=== PATIENT | female | born 1995 | race African-American/Black ===

== ENCOUNTER 2016-07-21 08:27 | Emergency (ER) | payer MEDICAID ==
[~2016-07-21] VITALS: Ht 193 cm; Wt 80.0 kg
[2016-07-21 08:28] VITALS: BP 106/60; PULSE 60; RESP 14; TEMP 97.6; O2SAT 98
[2016-07-21 08:54] VITALS: BP 121/60; PULSE 73; RESP 18; O2SAT 97
[2016-07-21 09:34] LABS: BACTERIA, URINE OCC /hpf; BLOOD, URINE NEG (NEG); COMMENT (UR) CULT NOT INDICATED; CULTURE IF INDICATED CULT NOT INDICATED; GLUCOSE,URINE NEG (NEG); KETONE, URINE NEG (NEG); MUCUS URINE MOD /lpf (OCC); NITRITE,URINE NEG (NEG); PH, URINE 5.5 (5.0-8.5); SQUAMOUS EPITHELIAL CELL URINE 6 /hpf (0-5); URINE COLOR YELLOW (YELLW/STRAW)
--- NOTE | 2016-07-21 10:28 | PD ---
HPI Chief Complaint: Abdominal Pain Time Seen by Provider: 08:52 Travel History International Travel<30 days: No Contact w/Intl Traveler<30days: No Traveled to known affect area: No History of Present Illness HPI 21-year-old female came to the emergency room with history of vaginal irritation and suprapubic pain for past 2 days. No history of dysuria or hematuria. Patient says that she has scratched herself down there because of the irritation once. She also shaved herself with a razor blade. She wanted to come in and be checked out to see what could be going on. She noticed some red rash down there. No history of vaginal discharge. Patient is sexually active but uses protection. Her last period was 2 weeks ago. Vital signs were stable. No history of STDs in the past. The pain is in the suprapubic area radiating downwards to the pelvic area. She has been applying some ointment which is coconut oil base [id number]-[id number] and says that has been soothing. [facility] Past Medical History Narrative Medical List of her past medical, social and family history reviewed from the nursing note. Influenza Vaccination: Yes ?: Not LMP: 2 weeks ago : 1 Para: 1 Social History Alcohol Use: Yes (on occasion) Tobacco Use: No Substance Use: Yes (thc on occasion ) Allergies-Medications (Allergen,Severity, Reaction): Coded Allergies: Cultivated Oat Pollen (Verified Allergy, Unknown, 07/21/16) Comments List of allergies reviewed from the nursing note. Narrative Medication Patient is not on any medications. Review of Systems Except as stated in HPI: all other systems reviewed are Neg Physical Exam Narrative GENERAL: Awake, alert, no obvious distress SKIN: Warm and dry. HEAD: Atraumatic. Normocephalic. EYES: Pupils equal and round. No scleral icterus. No injection or drainage. ENT: No nasal bleeding or discharge. Mucous membranes pink and moist. NECK: Trachea midline. No JVD. CARDIOVASCULAR: Regular rate and rhythm. No murmur appreciated. RESPIRATORY: No accessory muscle use. Clear to auscultation. Breath sounds equal bilaterally. GASTROINTESTINAL: Abdomen soft, non-tender, nondistended. Hepatic and splenic margins not palpable. : External inspection shows shaved pubic area, slight redness in the perineum. No obvious discharge. Speculum exam shows some whitish discharge which has no particular malodor. No CMT or adnexal tenderness. MUSCULOSKELETAL: No obvious deformities. No clubbing. No cyanosis. No edema. NEUROLOGICAL: Awake and alert. No obvious cranial nerve deficits. Motor grossly within normal limits. Normal speech. PSYCHIATRIC: Appropriate mood and affect; insight and judgment normal. Data Data Last Documented VS Vital Signs Date Time Temp Pulse Resp B/P Pulse Ox O2 Delivery O2 Flow Rate FiO2 07/21/16 10:38 98.2 79 18 119/64 98 07/21/16 08:54 Room Air Orders Gc And Chlamydia Pcr (07/21/16 08:59) Wet Prep Profile (07/21/16 08:59) Urinalysis - C+S If Indicated (07/21/16 08:59) Ed Urine Pregnancytest Poc (07/21/16 08:59) Labs Laboratory Tests Test 07/21/16 07/21/16 09:13 09:25 Urine Color YELLOW Urine Turbidity HAZY Urine pH 5.5 Urine Specific [place] 1.030 Urine Protein TRACE mg/dL Urine Glucose (UA) NEG mg/dL Urine Ketones NEG mg/dL Urine Occult Blood NEG Urine Nitrite NEG Urine Bilirubin NEG Urine Urobilinogen LESS THAN 2.0 MG/DL Urine Leukocyte Esterase MOD Urine WBC 2 /hpf Urine Squamous Epithelial 6 /hpf Cells Urine Bacteria OCC /hpf Urine Mucus MOD /lpf Microscopic Urinalysis Comment CULT NOT INDICATED Clue Cells (Wet Prep) NONE SEEN Vaginal Trichomonas (Wet Prep) NONE SEEN Vaginal Yeast (Wet Prep) NONE SEEN Chlamydia trachomatis DNA NOT DETECTED (PCR) Neisseria gonorrhoeae DNA NOT DETECTED (PCR) MDM Medical Decision Making Medical Screen Exam Complete: Yes Emergency Medical Condition: Yes Differential Diagnosis Vaginitis, contact dermatitis, local irritation, STD Narrative Course 10:26 AM UA seem to be within normal limits. Wet prep was negative. I will discharge her home at this point. I have encouraged her to continue using the nqfx-fsv-gytuelv ointment she has been using as well as witch sheree pads. Procedures EKG Prior to Arrival: No Diagnosis Primary Impression: Vaginitis Qualified Code: N76.0 - Acute vaginitis Additional Impression: Dermatitis Referrals: Primary Care Physician 3 days Additional Instructions: Please continue using the emollient cream that you have been using to soothe the skin. You can also get umrk-jpz-lowpkck witch sheree pads which will minimize the irritation. Do not shave until symptoms improve. Drink lots of fluid. Follow-up with primary care or return to ER if condition worsens. We' ll call you with the culture report if it is positive for GC or chlamydia. Med/Other Pt SpecificInfo: No Change to Meds Disposition: 01 DISCHARGE HOME Condition: Stable Andrea Kc MD Jul 21, 2016 10:28
[2016-07-21 10:38] VITALS: BP 119/64; TEMP 98.2
[2016-07-21 12:07] LABS: CHLAMYDIA PCR NOT DETECTED (NOT DETECT); NEISSERIA PCR NOT DETECTED (NOT DETECT)
== END 2016-07-21 11:00 | disposition home or self-care (01) ==
LOC: NEPE 08:27
DX: N76.0 Acute vaginitis (principal); L30.9 Dermatitis, unspecified; R21 Rash and other nonspecific skin eruption
CPT/HCPCS: 81001; 84703; 87210; 87491; 87591; 99284

== ENCOUNTER 2016-08-21 18:25 | Emergency (ER) | payer MEDICAID ==
[~2016-08-21] VITALS: Ht 193 cm; Wt 80.0 kg
[2016-08-21 18:28] VITALS: BP 96/60; PULSE 91; RESP 18; TEMP 98.2; O2SAT 99
== END 2016-08-21 21:48 | disposition left against medical advice (07) ==
LOC: NED 18:25
DX: K08.9 Disorder of teeth and supporting structures, unspecified (principal)
CPT/HCPCS: 99281

== ENCOUNTER 2016-09-07 20:44 | Emergency (ER) | payer MEDICAID ==
[~2016-09-07] VITALS: Ht 193 cm; Wt 83.0 kg
[2016-09-07 20:51] VITALS: BP 115/69; PULSE 76; RESP 14; TEMP 98.5; O2SAT 98
--- NOTE | 2016-09-07 20:58 | PD ---
Physical Exam Date Seen by Provider: Sep 07, 2016 Time Seen by Provider: 20:57 Narrative 21 year old female presents to the emergency department for evaluation of dental pain. She states all of her back teeth hurt. 8/10 pain. Pain has been ongoing for 1 week. Patient awaiting bed placement. Data Data Last Documented VS Vital Signs Date Time Temp Pulse Resp B/P Pulse Ox O2 Delivery O2 Flow Rate FiO2 09/07/16 20:51 98.5 76 14 115/69 98 Room Air [facility] Supervised Visit with KENN: Blank Diaz Sep 07, 2016 20:58
[2016-09-07] MEDS ORDERED: MAGICADU2 SWISH-SPIT (21:56)
[2016-09-07] MEDS ORDERED: IBUP800T23 PO (21:56)
[2016-09-07] MEDS ORDERED: PENI500T PO (21:56)
--- NOTE | 2016-09-07 21:59 | PD ---
HPI Chief Complaint: Oral / Dental Pain or Problem Time Seen by Provider: 21:50 Travel History International Travel<30 days: No Contact w/Intl Traveler<30days: No Traveled to known affect area: No History of Present Illness HPI 21-year-old female presents for evaluation of dental pain. Symptom onset 1 week ago. Pain is a throbbing pain localized to the right and left mandibular molars. Pain is partially relieved with the use of evle-qwh-wufviob Tylenol. She has had issues with these teeth for quite a while, it was recommended to her in the past that she have all of the teeth extracted however she is having difficulties affording the procedure. She denies any new dental trauma. No other complaints. [facility] Past Medical History Immunizations Current: Yes Tetanus Vaccination: Unknown Influenza Vaccination: Yes ?: Unknown : 1 Para: 1 Social History Alcohol Use: Yes (on occasion) Tobacco Use: No Substance Use: Yes (thc on occasion ) Allergies-Medications (Allergen,Severity, Reaction): Coded Allergies: Cultivated Oat Pollen (Verified Allergy, Unknown, 09/07/16) Reported Meds & Prescriptions Reported Meds & Active Scripts Active Active Prescriptions or Reported Medications Unobtainable Review of Systems General / Constitutional: No: Fever HENT: Positive: Dental Difficulties, No: Gingival Bleeding Physical Exam Narrative GENERAL: Well-nourished female in no acute distress SKIN: Warm and dry. HEAD: Atraumatic. Normocephalic. EYES: Pupils equal and round. No scleral icterus. No injection or drainage. ENT: No nasal bleeding or discharge. Mucous membranes pink and moist. Dental caries left and right mandibular molars, generalized tenderness to palpation. No gingival edema, no facial edema, no sublingual edema. No trismus. NECK: Trachea midline. No JVD. No lymphadenopathy. Neck supple full range of motion. Data Data Last Documented VS Vital Signs Date Time Temp Pulse Resp B/P Pulse Ox O2 Delivery O2 Flow Rate FiO2 09/07/16 20:51 98.5 76 14 115/69 98 Room Air MDM Medical Decision Making Medical Screen Exam Complete: Yes Emergency Medical Condition: Yes Medical Record Reviewed: Yes Differential Diagnosis Dental caries, pulpitis, pericoronitis, periodontal abscess Narrative Course 21-year-old female presents with dental pain. Examination reveals dental caries , no evidence of deep space abscess. She appears well. She is being discharged with nonnarcotic pain medications and penicillin, recommended outpatient follow-up with a dentist. Diagnosis Primary Impression: Dental caries Additional Instructions: Medication as prescribed. Follow up with a dentist for definitive therapy. Med/Other Pt SpecificInfo: Prescription(s) given Scripts Ibuprofen 800 Mg [id number] Mg PO Q6HR PRN (PAIN) #40 TAB Ref 0 Prov:Ru Fierro MD 09/07/16 Penicillin V Potassium 500 Mg [id number] Mg PO Q8H 7 Days Ref 0 Prov:Ru Fierro MD 09/07/16 Sxyyeecm-Pcysbedwxlyfhva-Dvrxkqwrq Liq (Magic Mouthwash Adult Liq)120 Ml Susp10 Ml SWISH-SPIT ACHS #120 ML Ref 1 Each 5mL contains: Nystatin 200,000units, Diphenhydramine 4.25mg, Viscous Lidocaine 10mg, [place] syrup 0.8 mL Prov:Ru Fierro MD 09/07/16 Disposition: 01 DISCHARGE HOME Condition: Stable Cody Madden Sep 07, 2016 21:59
== END 2016-09-07 22:11 | disposition home or self-care (01) ==
LOC: NEPK 20:44
DX: K02.9 Dental caries, unspecified (principal)
CPT/HCPCS: 99282